=== PATIENT | male | born 1955 ===

== ENCOUNTER 2020-09-17 09:55 | Emergency (ER) | payer OTHER ==
[~2020-09-17] VITALS: Ht 175.3 cm; Wt 72.6 kg
[2020-09-17] MEDS ORDERED: LEVOFLOXACIN500 MG PO (15:32)
== END 2020-09-17 16:11 | disposition home or self-care (01) ==
LOC: ER 09:55
DX: U07.1 COVID-19 (principal); R06.02 Shortness of breath

== ENCOUNTER 2020-09-21 18:05 | Inpatient (IN) | payer OTHER ==
[~2020-09-21] VITALS: Ht 182.9 cm; Wt 81.6 kg
[~2020-09-21 18:05] MED LIST: LEVOFLOXACIN500 MG PO
[2020-09-21] MEDS ORDERED: [UNRECOGNIZED DRUG - OTHER] (19:04)
[2020-09-27] MEDS ORDERED: DECADRON6 MG PO (09:17)
== END 2020-09-27 10:29 | disposition home or self-care (01) | DRG 177 ==
LOC: ER 18:05 → MEDJ 22:31
PROVIDERS: ADMIT Internal Medicine; ATTEND Internal Medicine
PROC: XW033E5 Introduction of Remdesivir Anti-infective into Peripheral Vein, Percutaneous Approach, New Technology Group 5 (ICD-10-PCS; principal; 2020-09-22)
PROC: BW24ZZZ Computerized Tomography (CT Scan) of Chest and Abdomen (ICD-10-PCS; 2020-09-22)
DX: U07.1 COVID-19 (principal); J12.89 Other viral pneumonia; R09.02 Hypoxemia; I10 Essential (primary) hypertension; E78.49 Other hyperlipidemia

== ENCOUNTER 2021-09-04 14:09 | Emergency (ER) | payer OTHER ==
[~2021-09-04] VITALS: Ht 182.9 cm; Wt 89.4 kg
[~2021-09-04 14:09] MED LIST changes: +DECADRON6 MG PO; +[UNRECOGNIZED DRUG - OTHER]
[2021-09-04] MEDS ORDERED: LIPITOR20 MG (14:23)
[2021-09-04] MEDS ORDERED: LEVOTHYROXINE25 MCG (14:23)
[2021-09-04] MEDS ORDERED: LOSARTAN POTASS25 MG (14:23)
[2021-09-04] MEDS ORDERED: BENZONATATE200 M1 PO (18:07)
== END 2021-09-04 18:57 | disposition home or self-care (01) ==
LOC: ER 14:09
DX: J06.9 Acute upper respiratory infection, unspecified (principal); B34.8 Other viral infections of unspecified site; Z11.52 Encounter for screening for COVID-19